=== PATIENT | female | born 1960 | race Caucasian/White ===

== ENCOUNTER 2024-12-16 11:16 | Inpatient (IN) ==
[2024-12-16] MEDS ORDERED: GADOBENATE DIMEGLUMINE 15 ML/VIAL IV ONE (11:17)
[2024-12-16] MEDS ORDERED: IOPAMIDOL 100 ML BOTTLE IV ONE (11:17)
[2024-12-16] MEDS: 0.9 % SODIUM CHLORIDE 1,000 ML IV ONE (11:41)
[2024-12-16 11:54] LABS: Basophils # (Auto) 0.01 K/mcL (0.00-0.30); Basophils % (Auto) 0.2 % (0.0-2.0); Eosinophils # (Auto) 0.18 K/mcL (0.00-0.70); Eosinophils % (Auto) 2.9 % (0.0-7.0); Hematocrit 31.6 % (34.1-44.9); Hemoglobin 10.0 g/dL (11.2-15.7); Lymphocytes # (Auto) 1.26 K/mcL (1.50-4.80); Lymphocytes % (Auto) 20.5 % (15.5-49.0); Mean Corpuscular HGB Conc 31.6 g/dL (31.0-36.0); Monocytes # (Auto) 0.90 K/mcL (0.10-0.90); Monocytes % (Auto) 14.6 % (1.0-12.0); Neutrophils % (Auto) 61.6 % (38.0-78.0); Platelet Count 182 K/mcL (140-440); RBC 3.56 M/mcL (3.59-5.38); WBC 6.2 K/mcL (4.5-11.0)
[2024-12-16] MEDS: ACETAMINOPHEN 1,000 MG/100 ML BAG IV ONE (12:24)
[2024-12-16] MEDS: ONDANSETRON 4 MG/2 ML VIAL IV ONE (12:26)
[2024-12-16] MEDS: fentaNYL 100 MCG/2 ML VIAL IV ONE ×3 (12:26→20:35)
[2024-12-16 12:47] LABS: ALT/SGPT 41 U/L (<40); AST/SGOT 38 U/L (<32); Albumin 3.4 gm/dL (3.2-5.2); Albumin/Globulin Ratio 1.9 (1.0-2.3); Alkaline Phosphatase 220 U/L (39-117); Anion Gap 13.0 (8.0-16.0); Bilirubin,Total 0.6 mg/dL (0.1-1.0); Blood Urea Nitrogen 20 mg/dL (8-23); Calcium 8.3 mg/dL (8.6-10.4); Carbon Dioxide 22 mmol/L (22-30); Chloride 99 mmol/L (96-108); Globulin 1.8 gm/dL (2.2-3.7); Glucose 96 mg/dL (70-105); Potassium 3.4 mmol/L (3.3-5.1); Sodium 134 mmol/L (133-145)
[2024-12-16 14:41] LABS: Bacteria,Urine Few /hpf (0); Bilirubin,Urine Negative (Negative); Color,Urine Yellow; Glucose,Urine (UA) Negative (Negative); Ketones,Urine Negative (Negative); Leukocyte Esterase,Urine Moderate /uL (Negative); PH,Urine 6.0 (5.0-9.0); Protein,Urine Negative (Negative); Specific Gravity,Urine 1.015 (1.000-1.035); Urobilinogen,Urine Normal
[2024-12-16] MEDS: PIPERACILLIN SODIUM/TAZOBACTAM 3.375 GM in DEXTROSE 5% IN WATER 50 ML IV ONE (14:53)
[2024-12-16] MEDS: VANCOMYCIN 1,500 MG in 0.9 % SODIUM CHLORIDE 500 ML IV ONE (15:35)
[2024-12-16 19:01] LABS: Nucleated Cells,CSF 0 /cumm (0-5); Red Blood Cell,CSF 307 /cumm (0-1)
[2024-12-16 19:29] LABS: Glucose,CSF 58 mg/dL (40-70)
[2024-12-16] MEDS: KETOROLAC 15 MG/ML VIAL IV ONE (20:33)
[2024-12-16 20:43] LABS: Thyroid Stimulating Hormone 1.84 uIU/mL (0.27-5.01)
[2024-12-16] MEDS: ACYCLOVIR SODIUM 500 MG VIAL IV SCH (21:05)
[2024-12-16] MEDS: SODIUM CHLORIDE 0.9% IV SCH (21:24)
[2024-12-16] MEDS: ACYCLOVIR SODIUM IV SCH (21:24)
[2024-12-16] MEDS ORDERED: VANCOMYCIN PER PHARMACY IV SCH (23:00)
[2024-12-16] MEDS: PIPERACILLIN SODIUM/TAZOBACTAM 3.375 GM in DEXTROSE 5% IN WATER 100 ML IV SCH (23:55)
[2024-12-17] MEDS: KETOROLAC 15 MG/ML VIAL IV ONE (07:59)
[2024-12-17] MEDS: ACETAMINOPHEN 1,000 MG/100 ML BAG IV ONE (08:00)
[2024-12-17 08:49] LABS: Basophils # (Auto) 0.02 K/mcL (0.00-0.30); Basophils % (Auto) 0.3 % (0.0-2.0); Eosinophils # (Auto) 0.16 K/mcL (0.00-0.70); Eosinophils % (Auto) 2.1 % (0.0-7.0); Hematocrit 31.7 % (34.1-44.9); Hemoglobin 10.0 g/dL (11.2-15.7); Lymphocytes # (Auto) 1.48 K/mcL (1.50-4.80); Lymphocytes % (Auto) 19.2 % (15.5-49.0); Mean Corpuscular HGB Conc 31.5 g/dL (31.0-36.0); Monocytes # (Auto) 0.95 K/mcL (0.10-0.90); Monocytes % (Auto) 12.4 % (1.0-12.0); Neutrophils % (Auto) 65.9 % (38.0-78.0); Platelet Count 186 K/mcL (140-440); RBC 3.55 M/mcL (3.59-5.38); WBC 7.7 K/mcL (4.5-11.0)
[2024-12-17 09:11] LABS: Anion Gap 15.0 (8.0-16.0); Blood Urea Nitrogen 16 mg/dL (8-23); Calcium 8.1 mg/dL (8.6-10.4); Carbon Dioxide 20 mmol/L (22-30); Chloride 99 mmol/L (96-108); Glucose 58 mg/dL (70-105); Potassium 3.7 mmol/L (3.3-5.1); Sodium 134 mmol/L (133-145)
[2024-12-17] MEDS: LIDOCAINE 1% 10 ML VIAL SQ ONE (10:00)
[2024-12-17] MEDS: diphenhydrAMINE 50 MG/ML VIAL IV ONE (10:08)
[2024-12-17] MEDS: PROCHLORPERAZINE 10 MG/2 ML VIAL IV ONE (10:09)
[2024-12-17] MEDS: 0.9 % SODIUM CHLORIDE 1,000 ML IV SCH (10:57)
[2024-12-17] MEDS: DEXTROSE 50% 50 ML VIAL IV ONE (13:14)
[2024-12-17 13:24] LABS: LDH,Synovial Fluid 451 U/L
[2024-12-17 14:03] LABS: Nucleated Cells,Synovial Fld 10478 /cumm; Other Cells,Synovial Fluid 25 %
[2024-12-17 14:14] LABS: Crystals,Body Fluid None Seen (None Seen)
[2024-12-17 15:06] LABS: VBG HCO3 17.2 mmol/L (24.0-28.0); VBG PCO2 30.8 mmHg (41.0-51.0); VBG PH 7.37 U (7.32-7.42); VBG PO2 62.1 mmHg (25.0-40.0)
[2024-12-17 15:13] LABS: ALT/SGPT 31 U/L (<40); AST/SGOT 25 U/L (<32); Albumin 2.7 gm/dL (3.2-5.2); Albumin/Globulin Ratio 1.4 (1.0-2.3); Alkaline Phosphatase 215 U/L (39-117); Anion Gap 14.0 (8.0-16.0); Bilirubin,Total 0.7 mg/dL (0.1-1.0); Blood Urea Nitrogen 15 mg/dL (8-23); Calcium 7.9 mg/dL (8.6-10.4); Carbon Dioxide 18 mmol/L (22-30); Chloride 98 mmol/L (96-108); Globulin 2.0 gm/dL (2.2-3.7); Glucose 143 mg/dL (70-105); Potassium 3.6 mmol/L (3.3-5.1); Sodium 130 mmol/L (133-145)
[2024-12-17 15:49] LABS: Basophils # (Auto) 0.02 K/mcL (0.00-0.30); Basophils % (Auto) 0.3 % (0.0-2.0); Eosinophils # (Auto) 0.14 K/mcL (0.00-0.70); Eosinophils % (Auto) 2.3 % (0.0-7.0); Hematocrit 32.1 % (34.1-44.9); Hemoglobin 10.1 g/dL (11.2-15.7); Lymphocytes # (Auto) 1.03 K/mcL (1.50-4.80); Lymphocytes % (Auto) 17.3 % (15.5-49.0); Mean Corpuscular HGB Conc 31.5 g/dL (31.0-36.0); Monocytes # (Auto) 0.80 K/mcL (0.10-0.90); Monocytes % (Auto) 13.4 % (1.0-12.0); Neutrophils % (Auto) 66.5 % (38.0-78.0); Platelet Count 179 K/mcL (140-440); RBC 3.59 M/mcL (3.59-5.38); WBC 6.0 K/mcL (4.5-11.0)
[2024-12-17] MEDS: CALCIUM CARBONATE 500 MG TAB.CHEW CHEWED ONE (16:06)
[2024-12-17] MEDS: VANCOMYCIN 750 MG in 0.9 % SODIUM CHLORIDE 250 ML IV ONE (16:06)
[2024-12-17] MEDS: GLYCERIN, ADULT 1 SUPP.RECT PR ONE (17:22)
[2024-12-17] MEDS ORDERED: NORTRIPTYLINE 10 MG CAPSULE PO SCH (19:45)
[2024-12-17] MEDS ORDERED: DEXTROSE 31 GM ORAL.SUSP PO PRN (21:16)
[2024-12-17] MEDS ORDERED: DEXTROSE 50% 50 ML VIAL IV PRN (21:16)
[2024-12-17] MEDS: TACROLIMUS 1 MG CAPSULE PO SCH ×2 (21:23→21:41)
[2024-12-17] MEDS: PANTOPRAZOLE 40 MG TABLET PO SCH (21:23)
[2024-12-17] MEDS: [UNRECOGNIZED DRUG - OTHER] PO SCH (21:40)
[2024-12-17] MEDS: CALCIUM CARBONATE 400 MG PO SCH (21:40)
[2024-12-17] MEDS: MAGNESIUM OXIDE 400 MG PO SCH (21:40)
[2024-12-17] MEDS: CALCIUM PO SCH (21:40)
[2024-12-17] MEDS: MULTIVITAMIN PO SCH (21:41)
[2024-12-17] MEDS: MYCOPHENOLATE SODIUM 360 MG PO SCH (21:41)
[2024-12-17] MEDS: [UNRECOGNIZED DRUG - OTHER] PO SCH (21:41)
[2024-12-17 22:28] LABS: Anion Gap 12.0 (8.0-16.0); Blood Urea Nitrogen 13 mg/dL (8-23); C-Reactive Protein 28.70 mg/dL (0.03-0.80); Calcium 8.1 mg/dL (8.6-10.4); Carbon Dioxide 21 mmol/L (22-30); Chloride 98 mmol/L (96-108); Glucose 111 mg/dL (70-105); Potassium 3.8 mmol/L (3.3-5.1); Sodium 131 mmol/L (133-145)
[2024-12-18] MEDS: LACTATED RINGERS 1,000 ML IV SCH (00:08)
[2024-12-18] MEDS: ACETAMINOPHEN 325 MG TABLET PO PRN (06:18)
[2024-12-18 06:27] LABS: Basophils # (Auto) 0.02 K/mcL (0.00-0.30); Basophils % (Auto) 0.3 % (0.0-2.0); Eosinophils # (Auto) 0.17 K/mcL (0.00-0.70); Eosinophils % (Auto) 2.3 % (0.0-7.0); Hematocrit 34.3 % (34.1-44.9); Hemoglobin 10.9 g/dL (11.2-15.7); Lymphocytes # (Auto) 1.01 K/mcL (1.50-4.80); Lymphocytes % (Auto) 13.6 % (15.5-49.0); Mean Corpuscular HGB Conc 31.8 g/dL (31.0-36.0); Monocytes # (Auto) 1.10 K/mcL (0.10-0.90); Monocytes % (Auto) 14.8 % (1.0-12.0); Neutrophils % (Auto) 68.9 % (38.0-78.0); Platelet Count 196 K/mcL (140-440); RBC 3.86 M/mcL (3.59-5.38); WBC 7.4 K/mcL (4.5-11.0)
[2024-12-18 06:53] LABS: ALT/SGPT 26 U/L (<40); AST/SGOT 23 U/L (<32); Albumin 2.5 gm/dL (3.2-5.2); Albumin/Globulin Ratio 1.1 (1.0-2.3); Alkaline Phosphatase 247 U/L (39-117); Anion Gap 13.0 (8.0-16.0); Bilirubin,Direct 0.4 mg/dL (<0.3); Bilirubin,Total 0.6 mg/dL (0.1-1.0); Blood Urea Nitrogen 13 mg/dL (8-23); Calcium 8.1 mg/dL (8.6-10.4); Carbon Dioxide 19 mmol/L (22-30); Chloride 99 mmol/L (96-108); Globulin 2.2 gm/dL (2.2-3.7); Glucose 86 mg/dL (70-105); Phosphorous 3.2 mg/dL (2.5-4.5); Potassium 3.9 mmol/L (3.3-5.1); Sodium 131 mmol/L (133-145); Triglycerides 135 mg/dL (<150); Uric Acid 3.2 mg/dL (2.5-8.0)
[2024-12-18] MEDS: INSULIN LISPRO 1 UNIT/0.01 ML UNIT SQ SCH (08:27)
[2024-12-18 08:46] LABS: C-Reactive Protein 28.00 mg/dL (0.03-0.80)
[2024-12-18 09:14] LABS: Beta Hydroxybutyrate 1.04 mmol/L (<0.27)
[2024-12-18] MEDS: TRAMADOL 100 MG PO SCH (09:17)
[2024-12-18] MEDS: ESTRADIOL 0.5 MG TABLET PO SCH (09:48)
[2024-12-18] MEDS: EZETIMIBE 10 MG TABLET PO SCH (09:48)
[2024-12-18] MEDS: ENOXAPARIN 40 MG/0.4 ML SYRINGE SQ SCH (09:50)
[2024-12-18] MEDS: LEVOTHYROXINE 100 MCG TABLET PO SCH (09:50)
[2024-12-18] MEDS: CALCIUM CARBONATE 500 MG TAB.CHEW CHEWED SCH (09:52)
[2024-12-18] MEDS: NORTRIPTYLINE 10 MG CAPSULE PO SCH ×3 (09:52→20:55)
[2024-12-18] MEDS: NON FORMULARY MEDICATION 1 DOSE MISCELL (Alpha Lipoic Acid 600 mg capsule) PO SCH (10:09)
[2024-12-18] MEDS: PREDNISONE 2.5 MG PO SCH (10:09)
[2024-12-18] MEDS: SOLIFENACIN 10 MG PO SCH (10:09)
[2024-12-18] MEDS ORDERED: VANCOMYCIN PER PHARMACY IV SCH (10:19)
[2024-12-18] MEDS: MYCOPHENOLATE SODIUM 360 MG PO SCH (10:21)
[2024-12-18] MEDS: DEXTROSE 5%-LR 1,000 ML IV SCH (12:24)
[2024-12-18 14:47] LABS: Bilirubin,Urine Negative (Negative); Color,Urine Yellow; Glucose,Urine (UA) Negative (Negative); Ketones,Urine Trace mg/dL (Negative); Leukocyte Esterase,Urine Negative /uL (Negative); PH,Urine 5.0 (5.0-9.0); Protein,Urine Negative (Negative); Specific Gravity,Urine 1.015 (1.000-1.035); Urobilinogen,Urine Normal
[2024-12-18 16:04] LABS: Anion Gap 12.0 (8.0-16.0); Blood Urea Nitrogen 14 mg/dL (8-23); Calcium 8.3 mg/dL (8.6-10.4); Carbon Dioxide 20 mmol/L (22-30); Chloride 97 mmol/L (96-108); Glucose 174 mg/dL (70-105); Potassium 4.0 mmol/L (3.3-5.1); Sodium 129 mmol/L (133-145)
[2024-12-18] MEDS: VANCOMYCIN 1,000 MG in 0.9 % SODIUM CHLORIDE 250 ML IV ONE (17:15)
[2024-12-18] MEDS: LIDOCAINE 4% TOP PATCH TOPICAL ONE (18:59)
[2024-12-18] MEDS: ASPIRIN 81 MG TAB.CHEW PO SCH (20:53)
[2024-12-18] MEDS: MAGNESIUM OXIDE 400 MG TABLET PO SCH (20:54)
[2024-12-18] MEDS: MULTIVIT,THER IRON,CA,FA & MIN 1 TABLET PO SCH (20:58)
[2024-12-19 01:13] LABS: Anion Gap 10.0 (8.0-16.0); Blood Urea Nitrogen 13 mg/dL (8-23); Calcium 8.3 mg/dL (8.6-10.4); Carbon Dioxide 19 mmol/L (22-30); Chloride 99 mmol/L (96-108); Glucose 134 mg/dL (70-105); Potassium 4.1 mmol/L (3.3-5.1); Sodium 128 mmol/L (133-145)
[2024-12-19 01:16] LABS: Thyroid Stimulating Hormone 0.82 uIU/mL (0.27-5.01)
[2024-12-19 01:34] LABS: Sodium 128.0 mmol/L (133-145)
[2024-12-19] MEDS: SODIUM CHLORIDE 1 GM TABLET PO SCH (01:55)
[2024-12-19 05:45] LABS: ALT/SGPT 25 U/L (<40); AST/SGOT 23 U/L (<32); Albumin 2.5 gm/dL (3.2-5.2); Albumin/Globulin Ratio 1.0 (1.0-2.3); Alkaline Phosphatase 313 U/L (39-117); Anion Gap 10.0 (8.0-16.0); Bilirubin,Direct 0.3 mg/dL (<0.3); Bilirubin,Total 0.4 mg/dL (0.1-1.0); Blood Urea Nitrogen 14 mg/dL (8-23); Calcium 8.2 mg/dL (8.6-10.4); Carbon Dioxide 20 mmol/L (22-30); Chloride 100 mmol/L (96-108); Globulin 2.4 gm/dL (2.2-3.7); Glucose 102 mg/dL (70-105); Phosphorous 4.0 mg/dL (2.5-4.5); Potassium 4.3 mmol/L (3.3-5.1); Sodium 130 mmol/L (133-145); Triglycerides 100 mg/dL (<150); Uric Acid 2.8 mg/dL (2.5-8.0)
[2024-12-19 06:09] LABS: Basophils # (Auto) 0.01 K/mcL (0.00-0.30); Basophils % (Auto) 0.1 % (0.0-2.0); Eosinophils # (Auto) 0.02 K/mcL (0.00-0.70); Eosinophils % (Auto) 0.3 % (0.0-7.0); Hematocrit 31.7 % (34.1-44.9); Hemoglobin 10.2 g/dL (11.2-15.7); Lymphocytes # (Auto) 0.87 K/mcL (1.50-4.80); Lymphocytes % (Auto) 12.0 % (15.5-49.0); Mean Corpuscular HGB Conc 32.2 g/dL (31.0-36.0); Monocytes # (Auto) 0.44 K/mcL (0.10-0.90); Monocytes % (Auto) 6.0 % (1.0-12.0); Neutrophils % (Auto) 81.3 % (38.0-78.0); Platelet Count 231 K/mcL (140-440); RBC 3.68 M/mcL (3.59-5.38); WBC 7.3 K/mcL (4.5-11.0)
[2024-12-19 07:32] LABS: C-Reactive Protein 29.60 mg/dL (0.03-0.80)
[2024-12-19] MEDS: FUROSEMIDE 40 MG/4 ML VIAL IV ONE (08:39)
[2024-12-19] MEDS: MEROPENEM 1 GM in 0.9 % SODIUM CHLORIDE 50 ML IV SCH (09:37)
[2024-12-19] MEDS: ONDANSETRON 4 MG/2 ML VIAL IV ONE (09:37)
[2024-12-19] MEDS: ESTRADIOL 1 MG TABLET PO SCH (10:55)
[2024-12-19] MEDS: TRAMADOL 100 MG PO SCH (11:41)
[2024-12-19 14:43] LABS: Anion Gap 12.0 (8.0-16.0); Blood Urea Nitrogen 15 mg/dL (8-23); Calcium 8.2 mg/dL (8.6-10.4); Carbon Dioxide 20 mmol/L (22-30); Chloride 97 mmol/L (96-108); Glucose 141 mg/dL (70-105); Potassium 3.9 mmol/L (3.3-5.1); Sodium 129 mmol/L (133-145)
[2024-12-19] MEDS ORDERED: POLYETHYLENE GLYCOL 3350 17 GM PACKET PO PRN (17:07)
[2024-12-19] MEDS ORDERED: IPRATROPIUM/ALBUTEROL 3 ML AMPUL.NEB NEB PRN (17:07)
[2024-12-19] MEDS ORDERED: ONDANSETRON 4 MG/2 ML VIAL IV PRN (17:07)
[2024-12-19] MEDS ORDERED: SENNOSIDES 1 TABLET PO PRN (17:07)
[2024-12-19] MEDS ORDERED: LACTULOSE 20 GM/30 ML ORAL.SOL PO PRN (17:07)
[2024-12-19] MEDS: 0.9 % SODIUM CHLORIDE 1,000 ML IV SCH (18:00)
[2024-12-19 18:23] LABS: Sodium 131 mmol/L (133-145)
[2024-12-19] MEDS: MAGNESIUM CITRATE 300 ML ORAL.SOL PO ONE (19:53)
[2024-12-19] MEDS: MELATONIN 3 MG TABLET PO SCH (19:53)
[2024-12-19] MEDS: MELATONIN 3 MG TABLET PO ONE (19:57)
[2024-12-19] MEDS: MAGNESIUM CITRATE 300 ML ORAL.SOL ONE (19:58)
[2024-12-19] MEDS: ASPIRIN 81 MG TAB.CHEW ONE (20:42)
[2024-12-19] MEDS: PANTOPRAZOLE 40 MG TABLET ONE (20:42)
[2024-12-19] MEDS: CALCIUM CARBONATE 500 MG TAB.CHEW ONE (20:43)
[2024-12-19] MEDS: DOXYCYCLINE HYCLATE 100 MG TABLET.ORL PO SCH (21:07)
[2024-12-19] MEDS: DOXYCYCLINE HYCLATE 100 MG TABLET.ORL PO ONE (21:08)
[2024-12-19] MEDS: INSULIN LISPRO 1 UNIT/0.01 ML UNIT SQ ONE (21:08)
[2024-12-19] MEDS: 0.9 % SODIUM CHLORIDE 10 ML SYRINGE IV SCH (21:10)
[2024-12-20] MEDS: ACETAMINOPHEN 325 MG TABLET PO PRN (07:24)
[2024-12-20] MEDS: LEVOTHYROXINE 100 MCG TABLET PO SCH (07:25)
[2024-12-20] MEDS ORDERED: ALTEPLASE 2 MG VIAL IV PRN (09:20)
[2024-12-20] MEDS ORDERED: SODIUM CHLORIDE IRRIG SOLUTION 250 ML BOTTLE IRR ONE (11:59)
[2024-12-20] MEDS ORDERED: LIDOCAINE 1% 10 ML VIAL SQ ONE (11:59)
[2024-12-20] MEDS ORDERED: HEPARIN 10 UNITS/ML 5ML FLUSH IV ONE (11:59)
[2024-12-20] MEDS: METHOCARBAMOL 1,000 MG/10 ML VIAL IV PRN (12:13)
[2024-12-20] MEDS: 0.9 % SODIUM CHLORIDE 10 ML SYRINGE IV PRN (12:14)
[2024-12-20 12:26] LABS: Basophils # (Auto) 0.01 K/mcL (0.00-0.30); Basophils % (Auto) 0.1 % (0.0-2.0); Eosinophils # (Auto) 0.23 K/mcL (0.00-0.70); Eosinophils % (Auto) 3.3 % (0.0-7.0); Hematocrit 29.6 % (34.1-44.9); Hemoglobin 9.6 g/dL (11.2-15.7); Lymphocytes # (Auto) 0.95 K/mcL (1.50-4.80); Lymphocytes % (Auto) 13.5 % (15.5-49.0); Mean Corpuscular HGB Conc 32.4 g/dL (31.0-36.0); Monocytes # (Auto) 0.56 K/mcL (0.10-0.90); Monocytes % (Auto) 8.0 % (1.0-12.0); Neutrophils % (Auto) 74.8 % (38.0-78.0); Platelet Count 226 K/mcL (140-440); RBC 3.42 M/mcL (3.59-5.38); WBC 7.0 K/mcL (4.5-11.0)
[2024-12-20 12:46] LABS: ALT/SGPT 27 U/L (<40); AST/SGOT 34 U/L (<32); Albumin 2.8 gm/dL (3.2-5.2); Albumin/Globulin Ratio 1.3 (1.0-2.3); Alkaline Phosphatase 298 U/L (39-117); Anion Gap 10.0 (8.0-16.0); Bilirubin,Direct 0.2 mg/dL (<0.3); Bilirubin,Total 0.4 mg/dL (0.1-1.0); Blood Urea Nitrogen 19 mg/dL (8-23); Calcium 8.3 mg/dL (8.6-10.4); Carbon Dioxide 23 mmol/L (22-30); Chloride 103 mmol/L (96-108); Globulin 2.2 gm/dL (2.2-3.7); Glucose 110 mg/dL (70-105); Phosphorous 2.0 mg/dL (2.5-4.5); Potassium 3.8 mmol/L (3.3-5.1); Sodium 136 mmol/L (133-145); Triglycerides 171 mg/dL (<150); Uric Acid 3.3 mg/dL (2.5-8.0)
[2024-12-20 12:55] VITALS: TEMP 97.6; O2SAT 100
[2024-12-20] MEDS ORDERED: ESTRADIOL 0.5 MG TABLET PO SCH (18:30)
[2024-12-20] MEDS ORDERED: 0.9 % SODIUM CHLORIDE 10 ML SYRINGE IV SCH (21:00)
[2024-12-20] MEDS ORDERED: HEPARIN 10 UNITS/ML 5ML FLUSH IV SCH ×2 (21:00)
[2024-12-21 09:09] LABS: Cryptococcal Ag Screen Negative (Negative)
== END 2024-12-20 14:30 | disposition short-term general hospital (02) | DRG 864 ==
LOC: ED 11:16 → ICU 12-19 16:30
PROVIDERS: ADMIT Student in an Organized Health Care Education/Training Program; ATTEND Student in an Organized Health Care Education/Training Program